=== PATIENT | female | born 1980 | race Caucasian/White ===

== ENCOUNTER 2017-04-18 18:23 | Emergency (ER) | END 2017-04-18 20:05 | disposition left against medical advice (07) | LOC: UCCORT 18:23 | DX: J34.89 Other specified disorders of nose and nasal sinuses (principal); Z53.21 Procedure and treatment not carried out due to patient leaving prior to being seen by health care provider ==

== ENCOUNTER 2018-10-09 08:26 | Emergency (ER) | payer BC, OTHER ==
[2018-10-09 08:52] VITALS: BP 114/84
--- NOTE | 2018-10-09 09:22 | UC ---
Neck Pain HPI - HPI Summary HPI Summary: Pt presents with several weeks wax.wane upper trapezius pain. Pt statse has had similar sx in the past. States this flare occurred after carrying heavy back pack all day. pt has applied ice and heat wit mild improvement. Feels good in shower with heat and strethcing No direct trauma. no paresthesia, ext weakness. No fever, chills. No cp, sob, abd pain. Talking with pt -became tearful. Pt has recently finalized divorce and exhusband is taking less responsibility with their daughter.Daughter is 9 and refusing to sleep in own bed - mom trying to retrain. little help at home - little time for self, increased responsibilities at work. pt with not SI/hi - remarks is tired. Pt previously saw counselor- has not been in awhile. states feeling fatigued and stressed. pt will get alone time this weekend - daugther going to fathers not medications reviewed - History of Current Complaint Chief Complaint: UCBackPain Stated Complaint: NECK PAIN Time Seen by Provider: 10/09/18 09:15 Hx Obtained From: Patient Hx Last Menstrual Period: IUD in place ?: No Pain Intensity: 6 - Allergies/Home Medications Allergies/Adverse Reactions: Allergies Allergy/AdvReac Type Severity Reaction Status Date / Time No Known Allergies Allergy Verified 10/09/18 08:51 Home Medications: Home Medications Loratadine 10 mg PO DAILY 10/09/18 [History Confirmed 10/09/18] Multivitamin [Multivitamins] 1 cap PO DAILY 10/09/18 [History Confirmed 10/09/18 ] Naproxen [Naproxen 375 mg tab] 375 mg PO ONCE PRN 10/09/18 [History Confirmed ] PMH/Surg Hx/FS Hx/Imm Hx Previously Healthy: Yes - Surgical History Surgical History: Yes Surgery Procedure, Year, and Place: wisdom teeth - Family History Known Family History: Positive: Non-Contributory - Social History Occupation: Employed Full-time Lives: With Family Alcohol Use: Occasionally Substance Use Type: Marijuana Smoking Status (MU): Never Smoked Tobacco Review of Systems All Other Systems Reviewed And Are Negative: Yes Constitutional: Positive: Negative Skin: Positive: Negative Eyes: Positive: Negative ENT: Positive: Negative Respiratory: Positive: Negative Cardiovascular: Positive: Negative Gastrointestinal: Positive: Negative Musculoskeletal: Positive: Other: - upper shoulder, back pain Physical Exam - Summary Physical Exam Summary: Vital Signs Reviewed: Yes A+Ox3, minimal discomfort. tearful Eyes: Conjunctiva Clear, STARR. EOM intact and full ENT: Hearing grossly normal TM x 2 clear, mmoist, uvula midline, no exudate, no erythema Neck: Positive: Supple Respiratory: Positive: No respiratory distress, No accessory muscle use + CTA throughout no w/r Cardiovascular: RRR nl s1, s2 no m/r CBT <2 sec abd soft + BS nt/nd no guarding, no distension Musculoskeletal Exam: HENDERSON x 4 without difficulty Strength Intact, ROM Intact no pain c/t/l/s full AROM c spine without pain + TTP mild along paraspinal area upper back, right trapezius good ROM shoulder Neurological: Positive: Alert, + sensation throughout Psychological: Positive: tearful but articulate, good eye contact - insightful conversation, overwhelmed but not SI Skin: Positive: no rash, no ecchymosis Triage Information Reviewed: Yes Vital Signs: Initial Vital Signs Temp 98.3 F 10/09/18 08:45 Pulse 86 10/09/18 08:45 Resp 18 10/09/18 08:45 BP 114/84 10/09/18 08:45 Pulse Ox 100 10/09/18 08:45 Neck Pain Course/Dx - Course Course Of Treatment: Pt presents for upper back pain, tightness after carrying backpack after discussion with pt - has increased life stressors and decrease sleep. Pt feeling overwhelmed -noSI/HI VSS pt with mild paraspinal and right trapezius pain full upper body ROM good CSM I provided supportive listening to patient - she has good insight - not si/hi pt will contact her counselor and pcp for fu d/w pt emergency mental health if needed for back recommend heat, stretch, motrin/apap, PT referral pt comfort and agreement with plan - Differential Dx/Diagnosis Provider Diagnosis: Muscle pain, cervical Discharge - Sign-Out/Discharge Documenting (check all that apply): Patient Departure All imaging exams completed and their final reports reviewed: No Studies - Discharge Plan Condition: Stable Disposition: HOME Prescriptions: Cyclobenzaprine TAB* [Flexeril 10 MG TAB*] 5 mg PO Q8HR PRN #10 tab PRN Reason: muscle spasm Patient Education Materials: Cervical Strain (DC), Muscle Spasm (ED) Referrals: MARIANA Deluca [Primary Care Provider] - Additional Instructions: - Okay to take Naproxyn or ibuprofen (Advil, Motrin) as currently taking. Okay to take tylenol every 8 hours. Take with food. - Okay to take flexeril - muscle relaxer as prescribed - Do NOT drive, operate machinery or drink alcohol while taking this medication - it causes sedation -Apply moist heat to your back for 20 minutes at a time, 4-5 times a day. Once your muscles are warm, slow gentle stretching exercises are important - Consider using a travel neck pillow for support -Contact your doctor today to arrange a follow-up appointment for early next week. - You have been given a referral for physical therapy As discussed - it is recommended you schedule a follow-up appointment with your counselor for additional support - Billing Disposition and Condition Condition: STABLE Disposition: Home
== END 2018-10-09 10:14 | disposition home or self-care (01) ==
LOC: UCCORT 08:26
DX: M54.2 Cervicalgia (principal); M25.511 Pain in right shoulder
CPT/HCPCS: 99212; G0463